=== PATIENT | female | born 1955 | race Caucasian/White ===

== ENCOUNTER 2020-12-28 11:28 | Emergency (ER) | payer MEDICARE ==
[2020-12-28] MEDS ORDERED: WARFARIN SODIUM1 MG PO (11:36)
[2020-12-28] MEDS ORDERED: BP MED (11:37)
[2020-12-28] MEDS ORDERED: FUROSEMIDE20 MG PO (11:48)
[2020-12-28] MEDS ORDERED: HALDOL DECAN50 MG/M1 IM (11:48)
[2020-12-28] MEDS ORDERED: ATORVASTATIN CA40 MG PO (11:50)
[2020-12-28] MEDS ORDERED: ALDACTONE25 M1 PO (11:51)
[2020-12-28] MEDS ORDERED: PANTOPRAZOLE SO40 MG PO (11:51)
[2020-12-28] MEDS ORDERED: LISINOPRIL40 MG PO (11:51)
[2020-12-28] MEDS ORDERED: METOPROLOL SUCC50 M1 PO (11:52)
[2020-12-28 12:14] LABS: EOS # 0.1 (0.04-0.40); HEMATOCRIT 30.1 % (37.0-47.0); HEMOGLOBIN 8.2 g/dL (12.5-16.0); LYMPH# 1.3 (1.50-4.00); MEAN PLATELET VOLUME 9.3 fl (7.4-10.4); MONO # 0.6 (0.20-0.80); NEU # 3.6 (1.40-6.50); PLATELET COUNT 265 K/mm3 (130-400); RED BLOOD COUNT 4.58 M/mm3 (4.10-5.30); WHITE BLOOD COUNT 5.6 K/mm3 (4.8-10.8)
[2020-12-28 12:17] LABS: MEAN CELL VOLUME 66 fl (78-100); MEAN CORPUSCULAR HEMOGLOBIN 18 pg (27-31); MEAN CORPUSCULAR HGB CONC 27 g/dL (33-37); RED CELL DISTRIBUTION WIDTH 21.7 % (11.5-14.5)
[2020-12-28 12:18] LABS: POTASSIUM 3.2 mmol/L (3.5-5.1)
[2020-12-28 12:19] LABS: CALCIUM 8.5 mg/dL (8.3-10.5)
[2020-12-28 12:24] LABS: PROTHROMBIN TIME 14.2 SECONDS (9.0-12.0)
[2020-12-28 13:40] VITALS: BP 174/85
[2020-12-28] MEDS ORDERED: TRAMADOL 50 MG TAB PO (13:42)
[2020-12-28] MEDS ORDERED: POTASSIUM CHLO20 ME3 PO (13:43)
== END 2020-12-28 14:01 | disposition home or self-care (01) ==
LOC: ED 11:28
PROVIDERS: Family Medicine
DX: S00.83XA Contusion of other part of head, initial encounter (principal); D64.9 Anemia, unspecified; E87.6 Hypokalemia; E04.1 Nontoxic single thyroid nodule; I10 Essential (primary) hypertension; I48.91 Unspecified atrial fibrillation; Z86.73 Personal history of transient ischemic attack (TIA), and cerebral infarction without residual deficits; Z95.1 Presence of aortocoronary bypass graft; Z79.01 Long term (current) use of anticoagulants; Z88.6 Allergy status to analgesic agent; W10.1XXA Fall (on)(from) sidewalk curb, initial encounter; Y92.512 Supermarket, store or market as the place of occurrence of the external cause